=== PATIENT | male | born 1950 | race Caucasian/White ===

== ENCOUNTER 2022-09-25 19:42 | Emergency (ER) | payer MEDICARE, OTHER, SELFPAY ==
[2022-09-25 19:57] VITALS: BP 192/93; PULSE 106; RESP 20; TEMP 36.6; O2SAT 100
[2022-09-25 20:00] VITALS: BMI 24.2
--- NOTE | 2022-09-25 20:11 | DI.RAD.S_ITS ---
PROCEDURE: XR CHEST 1V INDICATIONS: chest pain TECHNIQUE: One view of the chest was acquired. COMPARISON: [facility], CR, XR SHOULDER LT MIN 2V, 09/25/2022, 20:15. FINDINGS: Surgical changes and devices: None. Lungs and pleura: Evaluation of the left hemithorax is limited by patient's overlying left upper extremity. Visualized lungs demonstrate mild interstitial prominence without focal consolidation. No evidence of pneumothorax or right pleural effusion. No definite left pleural effusion. Mediastinum: Mediastinal contours appear normal. Heart size is normal. Bones and chest wall: There is a mildly impacted fracture of the left humeral head and neck partially visualized. Overlying soft tissues appear unremarkable. IMPRESSION: 1. Limited study demonstrates no definite acute cardiopulmonary disease, with evaluation of the left lung base limited by patient's overlying left upper extremity. Dictated by: Jone Luciano M.D. on 09/25/2022 at 21:51 Approved by: Jone Lucaino M.D. on 09/25/2022 at 21:54
--- NOTE | 2022-09-25 20:12 | DI.RAD.S_ITS ---
PROCEDURE: XR ELBOW LT 2V INDICATIONS: multiple falls TECHNIQUE: 3 views of the elbow were acquired. COMPARISON: None. FINDINGS: Bones: Evaluation markedly limited by suboptimal positioning. There is a curvilinear lucency within the radial head suspicious for a nondisplaced fracture. No suspicious bony lesions. Soft tissues: Evaluation for joint effusion is limited due to markedly limited lateral view. No suspicious soft tissue calcifications. IMPRESSION: 1. Limited study demonstrates suspected nondisplaced fracture of the radial head. Dictated by: Jone Luciano M.D. on 09/25/2022 at 21:49 Approved by: Jone Luciano M.D. on 09/25/2022 at 21:51
--- NOTE | 2022-09-25 20:12 | DI.RAD.S_ITS ---
PROCEDURE: XR HAND LT 2V INDICATIONS: multiple falls TECHNIQUE: Two views of the left hand acquired. Exam online for interpretation at 9:07 p.m.. COMPARISON: None. FINDINGS: Bones: Evaluation is markedly limited by suboptimal positioning. No definite acute fracture or dislocation. The distal 2nd and 3rd digits are incompletely are normal the views limiting evaluation. There is a suspected mildly displaced fracture of the 4th proximal phalanx. Soft tissues: No suspicious soft tissue calcifications. IMPRESSION: 1. Markedly limited study due to suboptimal positioning. 2. Suspected mildly displaced fracture of the 4th proximal phalanx. Dictated by: Jone Luciano M.D. on 09/25/2022 at 21:45 Approved by: Jone Luciano M.D. on 09/25/2022 at 21:48
--- NOTE | 2022-09-25 20:12 | DI.CT.S_ITS ---
PROCEDURE: CT HEAD/BRAIN WO CON INDICATIONS: multiple falls TECHNIQUE: Noncontrast 4.5 mm thick angled axial sections acquired from the foramen magnum to the vertex, with coronal and sagittal reformats. For radiation dose reduction, the following was used: automated exposure control, adjustment of mA and/or kV according to patient size. COMPARISON: None. FINDINGS: Image quality: Excellent. CSF spaces: Basal cisterns are patent. There is mild to moderate cerebral volume loss, with resultant ventricular and sulcal prominence. There is prominence of the extra-axial spaces posteriorly in the posterior fossa suggestive of an arachnoid cyst. Brain: No intracranial hemorrhage, mass, or mass effect. There are subcortical, periventricular and deep white matter hypodensities consistent with mild chronic small vessel ischemic changes. The britt-white matter junction appears preserved. There is intracranial internal carotid artery atherosclerosis. Skull and face: Calvarium and visualized facial bones appear intact, without suspicious lesions. Sinuses: Visualized sinuses and mastoids are clear. IMPRESSION: 1. No acute intracranial abnormality. 2. Mild to moderate cerebral volume loss and mild chronic white matter small vessel ischemic changes. Dictated by: Jone Luciano M.D. on 09/25/2022 at 20:58 Approved by: Jone Luciano M.D. on 09/25/2022 at 21:03
--- NOTE | 2022-09-25 20:12 | DI.CT.S_ITS ---
PROCEDURE: CT CERVICAL SPINE WO CON INDICATIONS: multiple falls TECHNIQUE: Noncontrast 3 mm thick sections acquired from the skull base to the T4 level. Sagittal and coronal reformats were then constructed. For radiation dose reduction, the following was used: automated exposure control, adjustment of mA and/or kV according to patient size. COMPARISON: None. FINDINGS: Image quality: Excellent. Bones: No fractures or subluxation. There is minimal anterolisthesis at C2-C3. Minimal retrolisthesis demonstrated at C3-C4 and C4-C5. There is multilevel disc disease and facet joint arthropathy throughout the cervical spine. Visualized superior ribs are intact. Soft tissues: Prevertebral soft tissues are normal in thickness. No paravertebral hematomas. No apical pneumothoraces. There are moderate to severe centrilobular emphysematous changes within the visualized lungs as well as biapical scarring. IMPRESSION: 1. No acute fracture or subluxation. 2. Multilevel degenerative changes throughout the cervical spine. Dictated by: Jone Luciano M.D. on 09/25/2022 at 21:03 Approved by: Jone Luciano M.D. on 09/25/2022 at 21:05
--- NOTE | 2022-09-25 20:12 | DI.RAD.S_ITS ---
P or ROCEDURE: XR SHOULDER LT MIN 2V INDICATIONS: multiple falls TECHNIQUE: 2 views of the shoulder were acquired. Study online for interpretation at 9:05 p.m.. COMPARISON: None. FINDINGS: Bones: There is a comminuted fracture of the left humeral head and neck with impaction of the humeral shaft component. No definite dislocation. No suspicious bony lesions. Visualized ribs appear intact. Soft tissues: No suspicious soft tissue calcifications. IMPRESSION: 1. Comminuted, impacted fracture of the left humeral head and neck. Dictated by: Jone uLciano M.D. on 09/25/2022 at 21:43 Approved by: Jone Luciano M.D. on 09/25/2022 at 21:45
[2022-09-25 21:22] LABS: Add Manual Diff / Slide Review NO; Basophils Absolute Auto 100 /uL (0-100); Basophils Percent Auto 0.7 % (0-2); Eosinophils Absolute Auto 100 /uL (0-450); Eosinophils Percent Auto 0.7 % (2-4); Hematocrit 44.9 % (41-53); Hemoglobin 14.9 g/dL (13.5-17.5); Lymphocytes Absolute Auto 700 /uL (1100-4500); Lymphocytes Percent Auto 8.9 % (25-40); Mean Corpuscular HGB Conc 33.1 % (30-36); Mean Corpuscular Hemoglobin 31.2 PG (26-34); Mean Corpuscular Volume 94.4 fL (80-100); Monocytes Absolute Auto 700 /uL (0-900); Monocytes Percent Auto 8.3 % (3-14); Neutrophils Absolute Auto 6500 /uL (1500-7000); Neutrophils Percent Auto 81.4 % (50-75); Platelet Count 151 X10^3/uL (150-400); Red Blood Cell Count 4.76 X10^6/uL (4.5-5.9); Red Cell Distribution Width 12.8 % (11.6-14.8)
[2022-09-25 21:28] VITALS: BP 205/82; PULSE 122; RESP 13; O2SAT 100
[2022-09-25 21:32] LABS: Prothrombin Time 11.4 SECONDS (10.1-12.7)
[2022-09-25 21:34] LABS: PTT Partial Thromboplastin Tim 27 SECONDS (26-36)
[2022-09-25 21:38] LABS: Alanine Aminotransferase 34 IU/L (<50); Albumin 4.8 g/dL (3.5-5.0); Albumin Globulin Ratio 1.7 (1.0-2.8); Alkaline Phosphatase 83 U/L (38-126); Aspartate Aminotransferase 43 IU/L (17-59); Bilirubin Total 0.9 mg/dL (0.2-1.3); Blood Urea Nitrogen 6 mg/dL (9-20); Calcium 9.6 mg/dL (8.4-10.2); Carbon Dioxide 25 mmol/L (22-32); Chloride 94 mmol/L (98-107); Creatine Kinase 189 U/L (55-170); Estimated Glomerular Filt Rate > 60 mL/min (>60); Globulin 2.9 g/dL (1.7-4.1); Glucose 119 mg/dL (80-110); HEMOLYSIS < 15 (0-50); Lipase 137 U/L (23-300); Magnesium 1.4 mg/dL (1.6-2.3); Potassium 3.8 mmol/L (3.4-5.1); Sodium 130 mmol/L (137-145); Total Protein 7.7 g/dL (6.3-8.2)
[2022-09-25] MEDS: MORPHINE 2 MG/ML INJ IV ×2 (21:48→23:15)
[2022-09-25 21:49] LABS: Troponin I < 0.012 ng/mL (0.01-0.034)
[2022-09-25 21:53] LABS: CKMB % Relative Index 1.1 % (1.5-5.0); Creatine Kinase MB 2.14 ng/mL (<2.37)
[2022-09-25 22:00] LABS: Influenza A - CEPHEID Flu A NEGATIVE (NEGATIVE); Influenza B - CEPHEID Flu B NEGATIVE (NEGATIVE); Respiratory Syncytial Virus Negative (Negative)
[2022-09-25 22:13] LABS: COVID-19 CEPHEID 4-PLEX PCR Negative (Negative)
--- NOTE | 2022-09-25 23:02 | ED_ITS ---
HPI - Fall General Chief Complaint: Fall Stated Complaint: GLF/ Broken Lt shoulder? Time Seen by Provider: 09/25/22 20:48 Source: patient and EMS Mode of arrival: EMS History of Present Illness HPI Narrative: Patient is a 71-year-old male history of hypertension presenting today after 2 falls. His 1st fall was 3:00 a.m. this morning he is got his foot stuck between the bed and bedside table he fell injuring his left ring finger. He actually went to [facility] where he was seen and evaluated he had a finger splint on he fractured finger. He went home later this afternoon he was out side slipped on ice going up stairs is landing on his left shoulder. He did not his head he did not lose consciousness. He says that he has had been having some ongoing sciatica and some left leg issues he has been walking with a cane for a while now. His he feels like his left leg just isn't quite working. He has not had any fever chills or any other symptoms. Related Data Home Medications Medication Instructions Recorded Confirmed clopidogrel 75 mg tablet (Plavix) 1 tab PO QDAY #30 tabs 09/07/16 hydrochlorothiazide 12.5 mg capsule 12.5 mg PO QDAY ##0 10/25/16 Previous Rx's Medication Instructions Recorded hydrocodone 5 mg-acetaminophen 325 1 tab PO Q6H PRN pain #10 tabs 09/26/22 mg tablet Allergies Allergy/AdvReac Type Severity Reaction Status Date / Time No Known Drug Allergies Allergy Verified 09/25/22 21:14 Review of Systems Review of Systems Narrative: GENERAL: Denies chills, fatigue, malaise, fever, sweats, travel HEENT: Denies sinus pain, ear pain, sore throat, difficulty swallowing, neck pain RESPIRATORY: Denies dyspnea, cough, wheezing, hemoptysis, sputum. CARDIOVASCULAR: Denies chest pain, palpitations, orthopnea, edema GASTROINTESTINAL: Denies nausea, vomiting, abdominal pain, diarrhea, constipation, melena. : Denies dysuria, frequency, incontinence, hematuria, urinary retention, flank pain. MUSCULOSKELETAL: See HPI SKIN: No rash, no erythema, no pruritus NEUROLOGIC: Denies weakness, dizziness, headache, numbness, change in speech, confusion PSYCHIATRIC: No concerning psychosocial issues. 12 point review of systems is negative except for those stated above and HPI Patient History Social History Smoking Status: Former smoker Smoking Status: Former smoker alcohol intake frequency: 0-2 drinks per day Alcohol type: beer Substance Use Type: does not use Exam Initial Vital Signs Initial Vital Signs: Vital Signs Temperature 97.8 F 09/25/22 19:57 Pulse Rate 106 H 09/25/22 19:57 Respiratory Rate 20 09/25/22 19:57 Blood Pressure 192/93 H 09/25/22 19:57 Pulse Oximetry 100 09/25/22 19:57 Oxygen Delivery Method 09/25/22 19:57 GENERAL: Alert pleasant 71-year-old male and in [no acute] distress. HEENT: Head atraumatic,EOMI, pupils reactive, face symmetric, [moist] mucous membranes CARDIOVASCULAR: Regular rate and rhythm without murmurs, rubs or gallops. RESPIRATORY: Breath sounds equal bilaterally, no wheezes rales or rhonchi. ABDOMEN: Soft, nontender. Normoactive bowel sounds all 4 quadrants. No guarding or rebound. EXTREMITIES: Normal range of motion, no clubbing or edema. Neurovascularly intact Left shoulder significant swelling and contusion. Sensation intact distal radial pulse intact. Abrasions noted over elbow area. Left ring finger has significant swelling contusion deformity noted. No ring NEUROLOGICAL: Alert and oriented x4.Normal gait and speech. SKIN: Warm, dry, no laceration, no petechiae, no rashes or lesions. Procedures Nerve Block Nerve Block 1: Local Anesthetic: lidocaine 1% Amount of anesthesia used (mL): 3 Side: left Nerve Blocks: digital Procedure Successful: Yes Patient Tolerated Procedure: Well and No complications Complications: none Orthopedic Joint Reduction Joint #1: Side: left Joint Reduction Location: finger Analgesia: nerve block Local Anesthesia: lidocaine 1% Amount of anesthesic used (mL): 3 Technique used: direct manipulation Post-reduction neuro exam: intact and no change Post-reduction vascular: intact and no change Post Reduction X-Ray Obtained: No Splint Applied: Yes Patient Tolerated Procedure: Well and No complications Course Orders Ordered: ED Orders 09/25/22 21:09 Complete Blood Count AUTO DIFF Stat Comprehensive Metabolic Panel Stat Covid-19 + FLU A/B + RSV - PCR Stat Lipase Stat Magnesium Stat Partial Thromboplastin Time Stat Prothrombin Time INR Stat Troponin & CK Cardiac Panel Stat Discontinued Medications Hydrocodone Bitart/Acetaminophen (Hydrocodone/Acet 5/325 Prepack) 1 bottle MISC SEEINSTR ONE Stop: 09/26/22 00:46 Last Admin: 09/26/22 01:12 Dose: 1 bottle Documented By: ROSITA Morphine Sulfate (Morphine 2 Mg/Ml Inj) 2 mg IV NOW ONE Stop: 09/25/22 21:41 Last Admin: 09/25/22 21:48 Dose: 2 mg Documented By: GIUSEPPE Morphine Sulfate (Morphine 2 Mg/Ml Inj) 2 mg IV NOW ONE Stop: 09/25/22 23:11 Last Admin: 09/25/22 23:15 Dose: 2 mg Documented By: GIUSEPPE Morphine Sulfate (Morphine 2 Mg/Ml Inj) 2 mg IV NOW ONE Stop: 09/26/22 01:00 Last Admin: 09/26/22 01:08 Dose: 2 mg Documented By: ROSITA Vital Signs Vital signs: Vital Signs - 8 hr 09/26/22 01:34 09/26/22 01:41 Pulse Rate 64 64 Respiratory Rate 16 18 Blood Pressure 122/61 122/61 Pulse Oximetry 98 100 Oxygen Delivery Method Room Air Room Air MDM - Fall Lab Data Result diagrams: 09/25/22 21:09 09/25/22 21:09 Labs: Lab Results 09/25/22 09/25/22 09/25/22 Range/Units 21:09 21:09 21:09 WBC 8.0 (4.5-11.0) X10^3/uL RBC 4.76 (4.5-5.9) X10^6/uL Hgb 14.9 (13.5-17.5) g/dL Hct 44.9 (41-53) % MCV 94.4 (80-100) fL MCH 31.2 (26-34) PG MCHC 33.1 (30-36) % RDW 12.8 (11.6-14.8) % Plt Count 151 (150-400) X10^3/uL Neut % (Auto) 81.4 H (50-75) % Lymph % (Auto) 8.9 L (25-40) % [place] % (Auto) 8.3 (3-14) % Eos % (Auto) 0.7 L (2-4) % Baso % (Auto) 0.7 (0-2) % Neut # (Auto) 6500 (4673-8122) /uL Lymph # (Auto) 700 L (7411-1004) /uL [place] # (Auto) 700 (0-900) /uL Eos # (Auto) 100 (0-450) /uL Baso # (Auto) 100 (0-100) /uL PT 11.4 (10.1-12.7) SECONDS INR 1.0 (0.9-1.3) APTT 27 (26-36) SECONDS Sodium 130 L (137-145) mmol/L Potassium 3.8 (3.4-5.1) mmol/L Chloride 94 L (98-107) mmol/L Carbon Dioxide 25 (22-32) mmol/L BUN 6 L (9-20) mg/dL Creatinine 0.75 (0.66-1.25) mg/dL Estimated GFR > 60 (>60) mL/min BUN/Creatinine Ratio 8.0 (6-22) Glucose 119 H (80-110) mg/dL Calcium 9.6 (8.4-10.2) mg/dL Magnesium 1.4 L (1.6-2.3) mg/dL Total Bilirubin 0.9 (0.2-1.3) mg/dL AST 43 (17-59) IU/L ALT 34 (<50) IU/L Alkaline Phosphatase 83 (38-126) U/L Total Creatine Kinase 189 H (55-170) U/L CK-MB (CK-2) 2.14 (<2.37) ng/mL CK-MB (CK-2) Rel Index 1.1 L (1.5-5.0) % Troponin I < 0.012 (0.01-0.034) ng/mL Total Protein 7.7 (6.3-8.2) g/dL Albumin 4.8 (3.5-5.0) g/dL Globulin 2.9 (1.7-4.1) g/dL Albumin/Globulin Ratio 1.7 (1.0-2.8) Lipase 137 (23-300) U/L SARS-CoV-2 (PCR) (Negative) Influenza A (RT-PCR) (NEGATIVE) Influenza B (RT-PCR) (NEGATIVE) RSV (PCR) (Negative) 09/25/22 Range/Units 21:09 WBC (4.5-11.0) X10^3/uL RBC (4.5-5.9) X10^6/uL Hgb (13.5-17.5) g/dL Hct (41-53) % MCV (80-100) fL MCH (26-34) PG MCHC (30-36) % RDW (11.6-14.8) % Plt Count (150-400) X10^3/uL Neut % (Auto) (50-75) % Lymph % (Auto) (25-40) % [place] % (Auto) (3-14) % Eos % (Auto) (2-4) % Baso % (Auto) (0-2) % Neut # (Auto) (0481-8134) /uL Lymph # (Auto) (2904-8319) /uL [place] # (Auto) (0-900) /uL Eos # (Auto) (0-450) /uL Baso # (Auto) (0-100) /uL PT (10.1-12.7) SECONDS INR (0.9-1.3) APTT (26-36) SECONDS Sodium (137-145) mmol/L Potassium (3.4-5.1) mmol/L Chloride (98-107) mmol/L Carbon Dioxide (22-32) mmol/L BUN (9-20) mg/dL Creatinine (0.66-1.25) mg/dL Estimated GFR (>60) mL/min BUN/Creatinine Ratio (6-22) Glucose (80-110) mg/dL Calcium (8.4-10.2) mg/dL Magnesium (1.6-2.3) mg/dL Total Bilirubin (0.2-1.3) mg/dL AST (17-59) IU/L ALT (<50) IU/L Alkaline Phosphatase (38-126) U/L Total Creatine Kinase (55-170) U/L CK-MB (CK-2) (<2.37) ng/mL CK-MB (CK-2) Rel Index (1.5-5.0) % Troponin I (0.01-0.034) ng/mL Total Protein (6.3-8.2) g/dL Albumin (3.5-5.0) g/dL Globulin (1.7-4.1) g/dL Albumin/Globulin Ratio (1.0-2.8) Lipase (23-300) U/L SARS-CoV-2 (PCR) Negative (Negative) Influenza A (RT-PCR) Flu a negative (NEGATIVE) Influenza B (RT-PCR) Flu b negative (NEGATIVE) RSV (PCR) Negative (Negative) Imaging Data CT scan - head: Radiologist's Impression: Signed Patient: Ketan Martinez MR#: [id number] : 1950 Acct:[id number] Age/Sex: 71 / M Date of Service: 09/25/22 Loc: ED Accession Number: [id number] ?? Procedure: CT head/brain wo con Ordering Provider: Darlene Hays D.O. PROCEDURE:? CT HEAD/BRAIN WO CON ? INDICATIONS:? multiple falls ? TECHNIQUE:? Noncontrast 4.5 mm thick angled axial sections acquired from the foramen magnum to the vertex, with coronal and sagittal reformats.? For radiation dose reduction, the following was used:? automated exposure control, adjustment of mA and/or kV according to p atient size.? ? COMPARISON:? None. ? FINDINGS:? Image quality:? Excellent.? ? CSF spaces:? Basal cisterns are patent.? There is mild to moderate cerebral volume loss, with resultant ventricular and sulcal prominence.? There is prominence of the extra-axial spaces posteriorly in the posterior fossa suggestive of an arachnoid cyst. ? Brain:? No intracranial hemorrhage, mass, or mass effect.? There are subcortical, periventricular and deep white matter hypodensities consistent with mild chronic small vessel ischemic changes.? The britt-white matter junction appears preserved.? There is intracranial internal carotid artery atherosclerosis.? ? Skull and face:? Calvarium and visualized facial bones appear intact, without suspicious lesions.? ? Sinuses:? Visualized sinuses and mastoids are clear.? ? IMPRESSION:? ? 1. No acute intracranial abnormality. ? 2. Mild to moderate cerebral volume loss and mild chronic white matter small vessel ischemic changes.? ? ? Dictated by: Jone Luciano M.D. on 09/25/2022 at 20:58 ? ? Approved by: Jone Luciano M.D. on 09/25/2022 at 21:03 ? CT - cervical spine: Radiologist's Impression: Close Shoulder X-Ray (Signed) Luciano,Jone - 09/25/[address] (Signed) Luciano,Jone - 09/25/22 Hand X-Ray (Signed) Luciano,Jone - 09/25/22 Elbow X-Ray (Signed) Luciano,Jone - 09/25/[address] (Signed) Luciano,Jone - 09/25/22 Chest X-Ray (Signed) Luciano,Jone - 09/25/22 [place] [address] CT Scan Report Signed Patient: Ketan Martinez MR#: [id number] : 1950 Acct:[id number] Age/Sex: 71 / M Date of Service: 09/25/22 Loc: Accession Number: [id number] ?? Procedure: CT cervical spine wo con Ordering Provider: Darlene Hays D.O. PROCEDURE:? CT CERVICAL SPINE WO CON ? INDICATIONS:? multiple falls ? TECHNIQUE:? Noncontrast 3 mm thick sections acquired from the skull base to the T4 level.? Sagittal and coronal reformats were then constructed.? For radiation dose reduction, the following was used:? automated exposure control, adjustment of mA and/or kV according to patient size.? ? COMPARISON:? None. ? FINDINGS:? Image quality:? Excellent.? ? Bones:? No fractures or subluxation.? There is minimal anterolisthesis at C2- C3.? Minimal retrolisthesis demonstrated at C3-C4 and C4-C5.? There is multilevel disc disease and facet joint arthropathy throughout the cervical spine.? Visualized superior ribs are intact.? ? Soft tissues:? Prevertebral soft tissues are normal in thickness.? No paraver tebral hematomas.? No apical pneumothoraces.? There are moderate to severe centrilobular emphysematous changes within the visualized lungs as well as biapical scarring.? ? IMPRESSION:? ? 1. No acute fracture or subluxation. ? 2. Multilevel degenerative changes throughout the cervical spine.? Dictated by: Jone Luciano M.D. on 09/25/2022 at 21:03 ? ? Approved by: Jone Luciano M.D. on 09/25/2022 at 21:05 ? Chest x-ray: Radiologist's Impression: [address] [address] XRay Report Signed Patient: Ketan Martinez MR#: [id number] : 1950 Acct:[id number] Age/Sex: 71 / M Date of Service: 09/25/22 Loc: ED Accession Number: [id number] ?? Procedure: XR chest 1V Ordering Provider: Darlene Hays D.O. PROCEDURE:? XR CHEST 1V ? INDICATIONS:? chest pain ? TECHNIQUE:? One view of the chest was acquired.? ? COMPARISON:? [facility], CR, XR SHOULDER LT MIN 2V, 09/25/2022, 20:15. ? FINDINGS:? ? Surgical changes and devices:? None.? ? Lungs and pleura:? Evaluation of the left hemithorax is limited by patient's overlying left upper extremity.? Visualized lungs demonstrate mild interstitial prominence without focal consolidation.? No evidence of pneumothorax or right pleural effusion.? No definite left pleural effusion. ? Mediastinum:? Mediastinal contours appear normal.? Heart size is normal.? ? Bones and chest wall:? There is a mildly impacted fracture of the left humeral head and neck partially visualized.? Overlying soft tissues appear unremarkable.? ? IMPRESSION:? ? 1. Limited study demonstrates no definite acute cardiopulmonary disease, with evaluation of the left lung base limited by patient's overlying left upper extremity.? ? ? Dictated by: Jone Lucaino M.D. on 09/25/2022 at 21:51 ? ? Extremity x-ray #1: Radiologist's Impression: Signed Patient: Ketan Martinez MR#: [id number] : 1950 Acct:[id number] Age/Sex: 71 / M Date of Service: 09/25/22 Loc: ED Accession Number: [id number] ?? Procedure: XR elbow LT 2V Ordering Provider: Darlene Hays D.O. PROCEDURE:? XR ELBOW LT 2V ? INDICATIONS:? multiple falls ? TECHNIQUE:? 3 views of the elbow were acquired.? ? COMPARISON:? None. ? FINDINGS:? ? Bones:? Evaluation markedly limited by suboptimal positioning.? There is a curvilinear lucency within the radial head suspicious for a nondisplaced fracture.? No suspicious bony lesions.? ? Soft tissues:? Evaluation for joint effusion is limited due to markedly limited lateral view.? No suspicious soft tissue calcifications.? ? IMPRESSION:? ? 1. Limited study demonstrates suspected nondisplaced fracture of the radial head. ? ? Dictated by: Jone Luciano M.D. on 09/25/2022 at 21:49 Extremity x-ray #2: Radiologist's Impression: XRay Report Signed Patient: Ketan Martinez MR#: [id number] : 1950 Acct:[id number] Age/Sex: 71 / M Date of Service: 09/25/22 Loc: ED Accession Number: [id number] ?? Procedure: XR hand LT 2V Ordering Provider: Darlene Hays D.O. PROCEDURE:? XR HAND LT 2V ? INDICATIONS:? multiple falls ? TECHNIQUE:? Two views of the left hand acquired.? Exam online for interpretation at 9:07 p.m.. ? COMPARISON:? None. ? FINDINGS:? ? Bones:? Evaluation is markedly limited by suboptimal positioning.? No definite acute fracture or dislocation.? The distal 2nd and 3rd digits are incompletely are normal the views limiting evaluation.? There is a suspected mildly displaced fracture of the 4th proximal phalanx. ? Soft tissues:? No suspicious soft tissue calcifications.? ? ? IMPRESSION:? ? 1. Markedly limited study due to suboptimal positioning. ? 2. Suspected mildly displaced fracture of the 4th proximal phalanx. ? ? Dictated by: Jone Luciano M.D. on 09/25/2022 at 21:45 ? ? Extremity x-ray #3: Radiologist's Impression: XRay Report Signed Patient: Ketan Martinez MR#: [id number] : 1950 Acct:[id number] Age/Sex: 71 / M Date of Service: 09/25/22 Loc: ED Accession Number: [id number] ?? Procedure: XR shoulder LT min 2V Ordering Provider: Darlene Hays D.O. P or ROCEDURE:? XR SHOULDER LT MIN 2V ? INDICATIONS:? multiple falls ? TECHNIQUE:? 2 views of the shoulder were acquired.? Study online for interpretation at 9:05 p.m..? ? COMPARISON:? None. ? FINDINGS:? ? Bones:? There is a comminuted fracture of the left humeral head and neck with impaction of the humeral shaft component.? No definite dislocation.? No suspicious bony lesions.? Visualized ribs appear intact.? ? Soft tissues:? No suspicious soft tissue calcifications.? ? IMPRESSION:? ? 1. Comminuted, impacted fracture of the left humeral head and neck.? ? Dictated by: Jone Luciano M.D. on 09/25/2022 at 21:43 ? ? Approved by: Jone Luciano M.D. on 09/25/2022 at 21:45 ? ECG Data Interpretation: Sinus tachycardia rate 122 blood lead to has no tracing no obvious ST changes priors to compare MDM Narrative Medical decision making narrative: The patient had 2 falls in under 24 hours. He has a left humeral neck fracture and a left finger fracture. Blood work is otherwise reassuring. No evidence of infection. He we is put in a sling and able to ambulate with a cane without any difficulty. It sounds though he had 2 mechanical explainable falls. No need for admission at this time. The is quite swollen, attempted reduction but really did not get and aware. Is splinted he is in a sling. And given pain medicine. Discharge Plan Departure Patient Disposition: Home Clinical Impression: Finger fracture, left, Closed left humeral fracture Instructions: DI for Finger Fracture, DI for Humeral Fracture Activity Restrictions/Additional Instructions: *You have been diagnosed with left humeral fracture, left finger fracture *What to do: Keep arm in sling at all times including sleeping and bathing. He will need to follow-up with orthopedics. His expect have significant swelling. Ice 20-30 minutes at a time may need to sleep sitting up. *Continue to take medications as directed [place] 1 tablet every 6 hours if needed for severe pain--> sent to the DOD *Follow up with your primary care provider in 2-3 days or call [phone] *Return to ER if you should have increasing pain swelling weakness or any new, worsening or concerning symptoms CONTROLLED SUBSTANCE DISCHARGE (Narcotoic/benzodiazepine/Flexeril/Phenergan) 1. You have been prescribed narcotic medications, it does have acetaminophen/Tylenol/paracetamol in it, DO NOT TAKE MORE THAN 4,00mg in 24 hours of Tylenol. TRAMADOL DOES NOT CONTAIN TYLENOL 2. Please understand that we cannot provide further refills of narcotics, benzodiazepines or controlled substances through the ED and her pain management will need to be through your provider. 3. While on these medications you cannot drive or operate heavy machinery. 4. You cannot sign legal documents or perform any duties such as this. 5. As long as you're taking opiate pain medications he should also be taking a stool softener such as Colace, Dulcolax, MiraLAX or prune juice, to help avoid constipation. Prescriptions: New hydrocodone-acetaminophen 5-325 mg tablet 1 tab PO Q6H PRN (Reason: pain) Qty: 10 0RF No Action clopidogrel [Plavix] 75 MG tablet 1 tab PO QDAY Qty: 30 hydrochlorothiazide 12.5 MG capsule 12.5 mg PO QDAY Qty: 0 Referrals: [facility] [Provider Group] Visit Report Forms: Patient Portal/API
--- NOTE | 2022-09-25 23:54 | PC.NURSE ---
Cleaned skin tears to pt right elbow and wrist with normal saline, applied sillicone foam dressings.
--- NOTE | 2022-09-25 23:58 | PC.NURSE ---
Patient ambulated with steady gait in hallway, denies dizziness.
--- NOTE | 2022-09-26 00:33 | PC.NURSE ---
hard copy of vital signs in chart.
[2022-09-26] MEDS: MORPHINE 2 MG/ML INJ IV (01:08)
[2022-09-26] MEDS: HYDROCODONE/ACET 5/325 PREPACK 1 BOTTLE MISC (01:12)
[2022-09-26 01:34] VITALS: BP 122/61; PULSE 64; RESP 16; O2SAT 98
--- NOTE | 2022-09-26 01:36 | PC.NURSE ---
pt had bruising to left shoulder and left ring finger.
--- NOTE | 2022-09-26 01:40 | PC.NURSE ---
foam metal splint place to left ring finger, and emerald taped to middle finger.
[2022-09-26 01:41] VITALS: BP 122/61; PULSE 64; RESP 18; O2SAT 100
--- NOTE | 2022-09-26 09:34 | PC.NURSE ---
of pt called stating that [facility] pharmacy was off line and unable to fill script. Dr. Apple ordered script, sent to [facility].
== END 2022-09-26 01:41 | disposition home or self-care (01) ==
PROVIDERS: Emergency Provider Emergency Medicine
DX: S42.302A Unspecified fracture of shaft of humerus, left arm, initial encounter for closed fracture (principal); S62.611A Displaced fracture of proximal phalanx of left index finger, initial encounter for closed fracture; R07.9 Chest pain, unspecified; W00.0XXA Fall on same level due to ice and snow, initial encounter; Z20.822 Contact with and (suspected) exposure to COVID-19; Z79.02 Long term (current) use of antithrombotics/antiplatelets
CPT/HCPCS: 0241U; 26725; 36415; 70450; 71045; 72125; 73030; 73070; 73120; 80053; 82550; 82553; 83690; 83735; 84484; 85025; 85610; 85730; 93005; 93010; 96374; 96376; 99285; J2270

== ENCOUNTER → 2022-09-27 14:36 | Outpatient (CLI) | payer MEDICARE, OTHER, SELFPAY ==
--- NOTE | 2022-09-27 14:37 | DI.CT.S_ITS ---
PROCEDURE: CT UE LT WO CON INDICATIONS: CLOSED FRACTURE LEFT HUMERUS TECHNIQUE: Noncontrast 1-1.5 mm thick sections acquired from the acromioclavicular joint to the inferior scapula, with coronal and sagittal reformatting. COMPARISON: [facility], CR, XR SHOULDER LT MIN 2V, 09/25/2022, 20:15. FINDINGS: Image quality: Excellent. Bones: As seen on prior shoulder radiograph, there is an acute comminuted fracture involving proximal humeral shaft/surgical neck with superior and anterior displacement of proximal humeral shaft in relation to humeral head. Fracture line is seen extending to involve greater tuberosity of humeral head with anterior and laterally displaced fractured fragments. No definite involvement of lesser trochanter is seen. No other fracture or dislocation is noted. Mild acromioclavicular joint and glenohumeral joint osteoarthritic changes are seen with joint space narrowing and subchondral sclerosis. Visualized left upper ribs are intact. No suspicious bony lesions. Soft tissues: Significant soft tissue swelling and edema surrounding proximal humeral fracture site is seen. There is no significant joint effusion. No abnormal soft tissue calcifications or calcified intra-articular loose bodies. No definite full-thickness rotator cuff tendon rupture. Sagittal views shows no significant muscle atrophy of the rotator cuff muscles. The visualized left upper lung field is clear. IMPRESSION: 1. Finding is consistent with 3 part fracture of left proximal humerus and humeral head as described above. 2. Mild to moderate left shoulder joint osteoarthritis. No suspicious bony lesions. 3. Soft tissue swelling surrounding proximal humeral fracture site. No significant joint effusion. No abnormal soft tissue calcifications. No gross full-thickness rotator cuff tendon rupture. No significant muscle atrophy. Dictated by: Rodolfo Steele M.D. on 09/27/2022 at 15:14 Approved by: Rodolfo Steele M.D. on 09/27/2022 at 15:27
== END ==
PROVIDERS: Referring Provider Orthopaedic Surgery; Visit Provider Orthopaedic Surgery
DX: S42.232A 3-part fracture of surgical neck of left humerus, initial encounter for closed fracture (principal); M19.012 Primary osteoarthritis, left shoulder; M79.89 Other specified soft tissue disorders; X58.XXXA Exposure to other specified factors, initial encounter
CPT/HCPCS: 73200

== ENCOUNTER → 2022-10-03 15:41 | Outpatient (CLI) | payer MEDICARE, OTHER, SELFPAY ==
[2022-10-03 16:24] LABS: COVID19 -Nasal RAPID Negative (Negative)
== END ==
PROVIDERS: Referring Provider Orthopaedic Surgery; Visit Provider Orthopaedic Surgery
DX: Z11.59 Encounter for screening for other viral diseases (principal); Z20.822 Contact with and (suspected) exposure to COVID-19
CPT/HCPCS: 87635; C9803

== ENCOUNTER 2022-10-04 06:08 | Day surgery (SDC) | payer MEDICARE, OTHER, SELFPAY ==
[2022-10-04] VITALS (7 sets, daily range): BP systolic 110–165; BP diastolic 61–78; PULSE 79–88; RESP 11–16; TEMP 36.2–36.8; O2SAT 92–99; BMI 24.3
--- NOTE | 2022-10-04 | DI.RAD.S_ITS ---
PROCEDURE: XR SHOULDER LT MIN 2V INDICATIONS: ORIF LEFT SHOULDER TECHNIQUE: 4 views of the shoulder were acquired. COMPARISON: [facility], , XR SHOULDER LT MIN 2V, 09/25/2022, 20:15. FINDINGS: Bones: Postoperative changes of sideplate and screw fixation of the proximal humerus. Soft tissues: No suspicious soft tissue calcifications. IMPRESSION: Postoperative changes of left shoulder ORIF. Dictated by: Lm Birmingham M.D. on 10/04/2022 at 10:46 Approved by: Lm Birmingham M.D. on 10/04/2022 at 10:46
[2022-10-04] MEDS: LACTATED RINGERS 1,000 ML 42 ML IV ×2 (07:11→09:06)
--- NOTE | 2022-10-04 07:24 | PM.PREOP ---
Pre-operative Note Interval Note History & Physical reviewed/Exam performed by Physician: Yes Changes to H&P: No
--- NOTE | 2022-10-04 07:28 | P.OP_ITS ---
Operative Date/Time/Diagnoses Date of procedure: 10/04/22 Time of procedure: 07:31 Pre-op diagnosis: Left proximal humerus fracture Post-op diagnosis: same Procedure & Clinicians Procedure: ORIF left proximal humerus fracture Same procedure as scheduled: Yes Indications: This is a 71-year-old male who had a fall sustaining a left proximal humerus fracture at the surgical neck. The fracture is flexed almost 90?, despite traction, it was not reduced over time. In order to facilitate early range of motion, reduce the chance of malunion or nonunion we discussed operative fixation of the fracture. Risks were discussed including risk for bleeding, damage to internal structures, infection, nonunion, malunion, failure of hardware, risk of future surgery and anesthesia and . He accepted all risks and wished to go forward with surgery. Surgeon: Tc Gardiner [employer] Entry Clerk: Bonnie Swan Anesthesia Type: General Operative Notes Findings: Left proximal humerus fracture as seen under fluoroscopy and under direct visualization Closure Type: primary Specimen(s): none sent Prosthetic devices, grafts, tissues, transplants, or devices: [employer]hew proximal humerus locking plate Estimated Blood Loss (mL): 30 Blood products transfused: none Procedure in detail: Patient was seen in the preoperative holding area. His left upper extremity was examined and marked with my initials. We again went over the risks and benefits of surgery and consent was signed. He was brought back to the operating room and placed in a beach chair position. All bony prominences were padded. 2 g of Ancef were given. The left upper extremity was prepped and draped in the standard sterile fashion. A time-out was then performed in my initials were again confirmed on the left upper extremity. A standard deltopectoral approach was performed. The cephalic vein was encountered and move lateral and protected throughout the remainder of the case. The clavipectoral fascia was incised and the conjoined tendon was retracted medially. On approach it was noted that the humeral shaft had herniated through the deltoid muscle. This was reduced back through the muscle for the approach. It was also noted that there was some injury to the conjoined tendon as well as tearing of the biceps tendon from the humeral shaft fracture edge, although it did remain intact and was preserved through the remainder of the case. The subacromial and deltoid plan were freed of all adhesions. The axillary nerve was identified and protected through the entirety of the procedure. The fracture site was debrided and there was significant metaphyseal compression of the bone in this area. Fracture was reduced and held in place. We did note that there was anterior cortical read. A Fatima [employer] Nephew proximal humeral lock ing plate was then fashioned and fixed to the bone with multiple locking screws in the proximal head and bicortical screws in the humeral shaft. Shoulder was then taken through range of motion under multiple fluoroscopic views to confirm adequate hardware placement and fracture reduction. Before closure, we then turned our attention to the tear in the deltoid muscle. There is a 2 x 2 cm gap in the muscle which was damaged from the shaft when it herniated through. 2-0 Vicryl was used to close the muscle and tendon in a [id number] suture pattern. Wounds were thoroughly irrigated. They were then closed with 2-0 Vicryl and nette. Sterile dressings were placed the patient was then brought to the postanesthesia care unit. Complications: none Post-operative Condition: stable Disposition: PACU Plan for aftercare: He will be nonweightbearing to the left upper extremity for a minimum of 4 weeks. He is to remain in his sling for 2 weeks coming out for pendulum exercises. He will start working with physical therapy after 2 weeks on gentle range of motion. Dressing may remain on until his 1st postoperative visit. If water gets under the Aquacel dressing, he is to remove the dressing and let it air dry.
[2022-10-04] MEDS: CEFAZOLIN 2 GM/100 ML PREMIX 100 ML IV (08:00)
[2022-10-04] MEDS: TRANEXAMIC ACID 1,000 MG in SODIUM CHLORIDE 0.9% 100 ML 200 MG IV (08:25)
--- NOTE | 2022-10-04 08:44 | SUR.OPER ---
Beach chair with Skytron shoulder positioner. Lower body on padded OR bed. Head in foam padded head cradle, secured with straps. Non-operative arm secured over stomach, on top of pillow, covered with towel and taped into place. Pillows under knees. Safety belt at thigh. Cloth tape over blanket over lower legs. Tape over torso, blue towel protecting skin.
[2022-10-04] MEDS: BUPIVACAINE 0.5% (PF) 30 ML, EPINEPHrine 0.15 MG INJ (10:16)
== END 2022-10-04 11:25 | disposition home or self-care (01) ==
PROVIDERS: PCP Family Medicine; Referring Provider Orthopaedic Surgery; Visit Provider Orthopaedic Surgery
PROC: (CPT 23615; principal; 2022-10-04 07:45)
DX: S42.212A Unspecified displaced fracture of surgical neck of left humerus, initial encounter for closed fracture (principal); G89.18 Other acute postprocedural pain; W19.XXXA Unspecified fall, initial encounter
CPT/HCPCS: 23615; 64415; 73030; 76000; J0171; J0690; J1100; J2250; J2405; J2704; J3010

== ENCOUNTER → 2024-10-15 11:33 | Outpatient (CLI) | payer MEDICARE, OTHER, SELFPAY ==
--- NOTE | 2024-10-15 11:38 | DI.US.S_ITS ---
PROCEDURE: US ABDOMEN LIMITED INDICATIONS: Left upper quadrant pain TECHNIQUE: Real-time scanning was performed of the abdominal and retroperitoneal organs, with image documentation. COMPARISON: None. FINDINGS: Left Kidney: Normal in size and appearance measuring 10.2 centimeters. Spleen: Normal in size and appearance measuring 9.2 centimeters. Pancreas: Visualized portions of the pancreas are sonographically normal. Miscellaneous: No free abdominal fluid. IMPRESSION: Normal appearance of the left kidney, spleen and pancreas. Dictated by: Rashard Kaufman M.D. on 10/15/2024 at 13:22 Approved by: Rashard Kaufman M.D. on 10/15/2024 at 14:08
== END ==
PROVIDERS: Referring Provider Internal Medicine Gastroenterology; Visit Provider Internal Medicine Gastroenterology
DX: R10.12 Left upper quadrant pain (principal)
CPT/HCPCS: 76705

== ENCOUNTER 2024-10-21 06:46 | Day surgery (SDC) | payer MEDICARE, OTHER, SELFPAY ==
--- NOTE | 2024-10-21 | PATH_ITS ---
[facility] Accession Number: [id number] No. of containers..01 Tissue . 01 Material submitted: . colon - TRANSVERSE POLYP X 2 . 01 Diagnosis: TRANSVERSE COLON POLYPS: Tubular adenoma x2. BARBARA 10/25/2024 1013 Local . 01 Electronically signed: . Quoc Ley MD, PhD, Pathologist NPI- [id number] . 01 Gross description: . Received in formalin with two patient identifiers and polyps x2 at transverse, are two and brown soft tissue fragments 0.4 to 0.6 cm in greatest dimension. Submitted in cassette A1. ([id number]) /BARBARA 10/24/2024 1032 Local . 01 Pathologist provided ICD-10: D12.3 . 01 CPT . 829502 Specimen Comment: A courtesy copy of this report has been sent to [phone] Performed at: [address] [facility] [address], [place], [place] [id number] MD Jone Vera MD Phone: [phone]
[2024-10-21 07:12] VITALS: BP 183/83; PULSE 101; RESP 17; TEMP 36.2; O2SAT 96
--- NOTE | 2024-10-21 08:03 | PM.HP.1 ---
History of Present Illness History of Present Illness Date Patient Seen: 10/21/24 Time Patient Seen: 08:03 Chief complaint: Dx Colonoscopy w/poss bx Narrative: 74-year-old male here for colonoscopy. He has a personal history of colon cancer and colon polyps. He has left upper quadrant pain. I reviewed my office note. No significant changes other than the patient did have an ultrasound and this did not reveal any features to explain his symptoms. [facility] Medical History PVD (peripheral vascular disease) Eczema HLD (hyperlipidemia) HTN (hypertension) Lung mass Colon cancer (~2014) Surgical History History of surgery Hx of foot surgery History of hemicolectomy (09/30/15) Social History household members: spouse Smoking Status: Former smoker alcohol intake: current Meds Home Medications and Allergies Home Medications Medication Instructions Recorded Confirmed Type hydrocodone 5 mg-acetaminophen 325 1 tab PO Q4-6H PRN pain #10 tabs 09/26/22 10/04/22 Rx mg tablet atorvastatin 20 mg tablet 20 mg PO DAILY 10/04/22 10/04/22 History hydrocodone 5 mg-acetaminophen 325 1 tab PO Q6H PRN pain #20 tabs 10/04/22 Rx mg tablet ibuprofen 600 mg tablet 600 mg PO Q6H PRN pain #60 tabs 10/04/22 Rx lisinopril 20 mg tablet 20 mg PO DAILY 10/04/22 10/04/22 History ondansetron HCl 4 mg tablet 4 mg PO Q8H PRN nausea and 10/04/22 Rx vomiting #10 tabs Allergies Allergy/AdvReac Type Severity Reaction Status Date / Time No Known Drug Allergies Allergy Verified 10/04/22 06:45 Review of Systems Review of Systems ROS: Yes All systems reviewed with the patient and are negative except as otherwise documented Exam Vital Signs (past 8 hours): - 10/21/24 07:12 Temperature 97.2 F L Pulse Rate 101 H Respiratory Rate 17 Blood Pressure 183/83 H Pulse Oximetry 96 Oxygen Delivery Method Room Air Oxygen Delivery Method Room Air Const General: cooperative HENMT Head: normal to inspection Eyes General: appearance normal, both eyes and all related structures Neck Neck: normal visual inspection Chest Chest: normal inspection of the chest Resp Effort & Inspection: normal respiratory effort Cardio Rate: regular rate GI Inspection: normal to inspection Skin General: no rashes or lesions noted Neuro General: patient alert and patient awake Extrem General: normal to inspection and no pedal edema Psych Appearance: grossly normal Assessment & Plan Assessment & Plan narrative: 74-year-old male with personal history of colon cancer, personal history of colon polyps, and left upper quadrant pain for unknown reasons. Updated colonoscopy is pursued today. Time-Based Coding :: [TOTAL MINUTES] spent with patient and on the chart (including review of chart, obtaining history, exam, reviewing outside data, placing orders, documenting exam and treatment plan, and counseling patient) on [DATE].
--- NOTE | 2024-10-21 08:04 | PM.PREOP ---
Pre-operative Note Interval Note History & Physical reviewed/Exam performed by Physician: Yes Changes to H&P: No ASA Class (for procedural sedation): III
--- NOTE | 2024-10-21 08:40 | PM.OP.COLON ---
Operative Date/Time/Diagnoses Date of procedure: 10/21/24 Time of procedure: 08:40 Pre-op diagnosis: Personal history of colon cancer and colon polyps. Left upper quadrant pain. Post-op diagnosis: same Procedure & Clinicians Study performed: Colonoscopy with hot snare polypectomy Same procedure as scheduled: Yes Indications: Personal history of colon cancer and colon polyps. Left upper quadrant pain. Surgeon: Rai Giles Procedure Notes SCOAP/Timeout: Done Procedure in detail: After the risks and benefits were explained, written and verbal informed consent was obtained. The patient was brought into the procedure room and placed into the left lateral decubitus position. Please see anesthesia notes for sedation details. Digital rectal examination was accomplished. The scope was introduced into the patient and advanced under direct visualization to the cecum as identified by the appendiceal orifice and ileocecal valve. The scope was slowly withdrawn to carefully examine the mucosa for any defects or lesions. Comprehensive imaging was accomplished throughout the rectum including the dentate line. The colon was decompressed, the scope was then removed from the patient who tolerated the procedure well. Adult colonoscope Bowel prep adequate Scope withdrawal time: 13 minutes Sedation minutes: 26 Complications: none Impression: The patient had circumferential mild anal stenosis but no mass lesion was detected. There were some grade 1 internal hemorrhoids and some external skin tags as well. In the sigmoid there was some diverticulosis. The patient had a patent right hemicolectomy side to side anastomosis. In the transverse colon there were 2 sessile polyps ranging in size from 5-8 mm. These were removed with hot snare. No additional pathology was appreciated throughout. Endoscopic diagnosis 1. Patent right hemicolectomy anastomosis 2. Colon polyps 3. Mild diverticulosis 4. Mild anal stenosis with grade 1 hemorrhoids and skin tags Post-procedure Plan for aftercare: 1. Await histology. 2. Repeat colonoscopy 1 year. 3. No explanation was made today for the left upper quadrant pain; CT abdomen pelvis will be arranged. 4. Follow up GI clinic Disposition: PACU
[2024-10-21 08:42] VITALS: BP 113/66; PULSE 92; RESP 13; TEMP 36.6; O2SAT 97
[2024-10-21 08:48] VITALS: BP 128/74; PULSE 94; RESP 12; TEMP 36.6; O2SAT 98
[2024-10-21 08:53] VITALS: BP 132/76; PULSE 86; RESP 12; TEMP 36.6; O2SAT 98
== END 2024-10-21 09:11 | disposition home or self-care (01) ==
PROVIDERS: Referring Provider Internal Medicine Gastroenterology; Visit Provider Internal Medicine Gastroenterology
PROC: 0DJD8ZZ Inspection of Lower Intestinal Tract, Via Natural or Artificial Opening Endoscopic (ICD-10-PCS; CPT 45378; principal; 2024-10-21 08:00)
DX: R10.12 Left upper quadrant pain (principal); Z85.038 Personal history of other malignant neoplasm of large intestine; Z86.0100 Personal history of colon polyps, unspecified; Z90.49 Acquired absence of other specified parts of digestive tract; K62.4 Stenosis of anus and rectum; K57.30 Diverticulosis of large intestine without perforation or abscess without bleeding; K64.0 First degree hemorrhoids; K64.4 Residual hemorrhoidal skin tags; D12.3 Benign neoplasm of transverse colon
CPT/HCPCS: 45385; J2704

== ENCOUNTER → 2025-01-22 10:00 | Outpatient (CLI) | payer MEDICARE, OTHER, SELFPAY ==
--- NOTE | 2025-01-22 10:04 | DI.CT.S_ITS ---
PROCEDURE: CT ABDOMEN PELVIS W CON INDICATIONS: History of MALIGNANT neoplasm ASCENDING COLON, current left-sided abdominal pain per notes. TECHNIQUE: After the administration of intravenous contrast, axial sections acquired from the lung bases to the pubic symphysis. Coronal and sagittal reformats were performed. For radiation dose reduction, the following was used: automated exposure control, adjustment of mA and/or kV according to patient size. COMPARISON: No prior CT abdomen/pelvis available for comparison. FINDINGS: Image quality: Diagnostic. Some images are limited by beam hardening artifacts. Moderate nonspecific wall thickening of the stomach, for more than expected for artifact from partial nondistention and gastritis which may be an explanation for patient's left-sided pain or other process could be considered. Follow-up suggested. If symptoms persist or worsen, or there is high clinical suspicion of gastric abnormality, correlation with direct visualization endoscopy may be useful. Incidental note is made approximately 5.5 cm cc by 3.5 cm transverse by 2 2 cm AP low attenuation fluid right scrotal sac commonly moderate right hydrocele or other fluid collection. Moderate-sized anterior abdominal wall periumbilical hernia containing fat measuring up to 5.5 cm cc by 4.5 cm transverse by 3 cm AP. Moderate calcifications of the aorta and iliac vessels without CT evidence dissection aneurysm or stenosis. Mild degenerative changes lower thoracic, lumbar spine sacroiliac joints and hips. Mildly enlarged prostate gland and seminal vesicles. Mild nonspecific wall thickening of the urinary bladder measures up to 9 mm thickness some of which commonly artifact from partial nondistention although cystitis, chronic urinary retention or other process could be considered. A few diverticula in the descending and proximal sigmoid colon without CT evidence of diverticulitis. Lower Chest: Moderate COPD/emphysematous changes, pleural-parenchymal scarring bilateral lower lobes. ABDOMEN: Liver: Liver is normal in size contour and attenuation. No CT evidence of focal hepatic lesion.. Gallbladder: No radiopaque gallstones or wall thickening. Biliary ducts: No biliary dilation. Pancreas: No ductal dilation. Spleen: Size is within normal limits. Adrenal Glands: No adrenal nodules. Kidneys and Ureters: No hydronephrosis. No solid mass. No complex renal cystic lesion which requires follow up. Small Bowel: Normal colonic caliber, without significant wall thickening. No CT evidence of small bowel obstruction. Peritoneum: No abnormal intraperitoneal fluid. No free air. Ventral Wall: No significant ventral hernia. Abdominal Nodes: No retroperitoneal or mesenteric adenopathy by size criteria. Vessels: Aorta and inferior vena cava are normal in size. PELVIS: Pelvic Organs: Unremarkable. Pelvic Nodes: No enlarged lymph nodes. Miscellaneous: No inguinal hernias are seen. IMPRESSION: Moderate wall thickening of the stomach as discussed above possible gastritis. Follow-up suggested Moderate anterior abdominal wall hernia containing fat only. Right scrotal fluid collection commonly hydrocele as discussed above. Other chronic findings as above. Dictated by: Alvin Mcdonald M.D. on 01/22/2025 at 11:11 Approved by: Alvin Mcdonald M.D. on 01/22/2025 at 11:28
== END ==
DX: C18.2 Malignant neoplasm of ascending colon (principal); K42.9 Umbilical hernia without obstruction or gangrene; I70.0 Atherosclerosis of aorta; M47.814 Spondylosis without myelopathy or radiculopathy, thoracic region; M47.816 Spondylosis without myelopathy or radiculopathy, lumbar region; M47.818 Spondylosis without myelopathy or radiculopathy, sacral and sacrococcygeal region; N40.0 Benign prostatic hyperplasia without lower urinary tract symptoms; K57.30 Diverticulosis of large intestine without perforation or abscess without bleeding
CPT/HCPCS: 74177; Q9967

== ENCOUNTER → 2025-10-03 12:36 | Outpatient (CLI) | payer MEDICARE, OTHER, SELFPAY ==
--- NOTE | 2025-10-03 12:39 | DI.CT.S_ITS ---
PROCEDURE: CT CHEST WO CON INDICATIONS: Follow up loculated effusion TECHNIQUE: Noncontrast 5 mm thick sections acquired from the pulmonary apices to the posterior costophrenic angles. 1 mm lung window, 5 mm thick coronal and sagittal and 7 mm axial MIP reformats were then acquired. For radiation dose reduction, the following was used: automated exposure control, adjustment of mA and/or kV according to patient size. COMPARISON: Outside Facility, CT, CT ANGIO CHEST, 07/29/2025, 8:12. FINDINGS: Image quality: Diagnostic. Lungs and Pleura: Surgical staple lines in the anterior left upper lobe of prior partial lobectomy. There is a background moderate paraseptal and centrilobular emphysematous change diffusely. Mild septal thickening in the lower lungs, and mild left hemithorax volume loss. Subpleural nodule anterolateral right middle lobe, solid, 5 mm triangular, stable size. Interval resolution of previous posterior, lobulated left pleural effusion. Decrease in pleural thickening and no definitely layering effusion or pneumothorax. Mild bilateral perihilar bronchial wall thickening. Lower Neck: No enlarged lymph nodes. Thyroid: Normal CT appearance. Axillae: No enlarged lymph nodes. Chest Wall: No suspicious chest wall lesions. Bones: Several healed left-sided rib fractures. Endplate degeneration throughout the spine. No suspicious bone lesion. Thoracic Vessels: Normal caliber great vessels. Moderate to heavy aortic arch, great vessel origin, and descending thoracic aortic calcification. Normal caliber pulmonary arteries. Mediastinum and Evette: No enlarged lymph nodes. Heart: Heart size is normal. No pericardial effusion. Moderate coronary artery and aortic valvular calcification. Esophagus: No wall thickening. No hiatal hernia. Upper Abdomen: Visualized upper abdomen solid organs and bowel loops appear normal. IMPRESSION: Near complete interval resolution of lobulated left posterior lung pleural thickening/loculated effusion. Surgical changes in the anterior left upper lobe without evidence of local recurrence. Stable, nonspecific right middle lobe nodule. Continued attention on follow-up and/or follow-up in one year recommended. Moderate coronary artery and systemic aortic atherosclerotic calcification. Dictated by: Trniy Velez M.D. on 10/03/2025 at 20:35 Approved by: Triny Velez M.D. on 10/03/2025 at 20:44
== END ==
LOC: CT 12:38
PROVIDERS: Referring Provider Student in an Organized Health Care Education/Training Program; Visit Provider Student in an Organized Health Care Education/Training Program
DX: J90 Pleural effusion, not elsewhere classified (principal); R91.1 Solitary pulmonary nodule; I70.0 Atherosclerosis of aorta; I25.10 Atherosclerotic heart disease of native coronary artery without angina pectoris
CPT/HCPCS: 71250